=== PATIENT | female | born 1980 | race Caucasian/White ===

== ENCOUNTER 2024-11-16 13:23 | Day surgery (SDC) | payer OTHER ==
[~2024-11-16] VITALS: Ht 157.5 cm; Wt 67.6 kg
[~2024-11-16 13:23] MED LIST: ALLE180T42 PO; BISO5TAB14 PO; GLYCOPYRROLATE INJ 0.2 MG/ML 2 ML VIAL As Ordered ONE; HEARTAB2 PO; LIDOCAINE 2% 100 MG/5 ML SDV (FOR ANES.) As Ordered ONE; MULTTAB61 PO; ONDA-282 PO; PANT40TA29 PO
[2024-11-16 14:32] VITALS: TEMP 97.2
[2024-11-16 14:45] VITALS: BP 130/75; O2SAT 96
== END 2024-11-16 14:50 | disposition home or self-care (01) ==
LOC: M OPP 13:23
PROVIDERS: ATTEND Internal Medicine Gastroenterology
DX: K29.50 Unspecified chronic gastritis without bleeding (principal); K44.9 Diaphragmatic hernia without obstruction or gangrene; R10.13 Epigastric pain; Z88.2 Allergy status to sulfonamides; Z88.5 Allergy status to narcotic agent; Z79.899 Other long term (current) drug therapy
CPT/HCPCS: 43239; 88305; J1596; J3010

== ENCOUNTER → 2025-02-08 | Outpatient (CLI) | payer OTHER ==
[~2025-02-08] MED LIST changes: -GLYCOPYRROLATE INJ 0.2 MG/ML 2 ML VIAL As Ordered ONE; -LIDOCAINE 2% 100 MG/5 ML SDV (FOR ANES.) As Ordered ONE
== END ==
LOC: M RAD 15:44
PROVIDERS: ATTEND Dermatology
DX: L98.9 Disorder of the skin and subcutaneous tissue, unspecified (principal)